=== PATIENT | male | born 1980 | race Asian ===

== ENCOUNTER 2016-07-19 23:00 | Emergency (ER) | payer OTHER ==
[~2016-07-19] VITALS: Ht 172.7 cm; Wt 65.8 kg
[2016-07-19 23:32] VITALS: BP 137/54; TEMP 98.3
[2016-07-19 23:48] LABS: PLATELET COUNT 245 K/uL (142-355)
== END 2016-07-20 00:30 | disposition home or self-care (01) ==
LOC: ED 23:00
DX: S80.11XA Contusion of right lower leg, initial encounter (principal)
CPT/HCPCS: 36415; 85027; 99283

== ENCOUNTER 2017-02-21 01:41 | Emergency (ER) | payer OTHER ==
[~2017-02-21] VITALS: Ht 172.7 cm; Wt 61.2 kg
[2017-02-21 02:20] VITALS: BP 113/67; TEMP 99
== END 2017-02-21 02:21 | disposition home or self-care (01) ==
LOC: ED 01:41
DX: K08.89 Other specified disorders of teeth and supporting structures (principal)
CPT/HCPCS: 99282

== ENCOUNTER 2018-05-16 11:06 | Emergency (ER) | payer OTHER ==
[~2018-05-16] VITALS: Ht 172.7 cm; Wt 66.7 kg
[2018-05-16 11:10] VITALS: BP 101/53; TEMP 97.7
== END 2018-05-16 12:40 | disposition home or self-care (01) ==
LOC: ED 11:06
DX: M25.512 Pain in left shoulder (principal); M75.102 Unspecified rotator cuff tear or rupture of left shoulder, not specified as traumatic
CPT/HCPCS: 96372; 99283; J1885

== ENCOUNTER 2019-08-07 10:23 | Emergency (ER) | payer OTHER ==
[~2019-08-07] VITALS: Ht 172.7 cm; Wt 61.2 kg
[2019-08-07 11:45] VITALS: BP 101/58; TEMP 99.8
== END 2019-08-07 11:45 | disposition home or self-care (01) ==
LOC: ED 10:23
DX: J10.1 Influenza due to other identified influenza virus with other respiratory manifestations (principal); F17.290 Nicotine dependence, other tobacco product, uncomplicated
CPT/HCPCS: 87502; 87651; 99283